=== PATIENT | male | born 1995 | race Two or more races ===

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

== ENCOUNTER 2017-09-04 16:20 | Emergency (ER) | payer OTHER ==
[2017-09-04] MEDS: IBUPROFEN 600 MG TAB PO (17:41)
== END 2017-09-04 17:46 | disposition home or self-care (01) ==
LOC: M ED 16:20
DX: M25.532 Pain in left wrist (principal)
CPT/HCPCS: 99282

== ENCOUNTER → 2019-04-30 | Outpatient (REF) | payer OTHER | LOC: M SFHCLERA 19:00 | PROVIDERS: ATTEND Physician Assistant | DX: J02.9 Acute pharyngitis, unspecified (principal) ==

== ENCOUNTER 2020-04-21 04:55 | Emergency (ER) | payer OTHER, SELFPAY ==
[~2020-04-21] VITALS: Ht 182.9 cm; Wt 93.2 kg
[2020-04-21 04:55] VITALS: BP 131/75
--- OUTSIDE RECORDS SUMMARY | 2020-04-21 05:02 | CCD ---
Author Author [facility] Organization [facility] Address Unknown Phone Unavailable Care Team Providers Care Infrastructure Director Name Role Phone Kelly Sexton MD Unavailable Unavailable Kelly Sexton MD Unavailable Unavailable Kelly Sexton MD Unavailable Unavailable Kelly Sexton MD Unavailable Unavailable Kelly Sexton MD Unavailable Unavailable Kelly Sexton MD Unavailable Unavailable Kelly Sexton MD Unavailable Unavailable Kelly Sexton MD Unavailable Unavailable Kelly Sexton MD Unavailable Unavailable Kelly Sexton MD Unavailable Unavailable Kelly Sexton MD Unavailable Unavailable Kelly Sexton MD Unavailable Unavailable Kelly Sexton MD Unavailable Unavailable Kelly Sexton MD Unavailable Unavailable Kelly Sexton MD Unavailable Unavailable Kelly Sexton MD Unavailable Unavailable Kelly Sexton MD Unavailable Unavailable Kelly Sexton MD Unavailable Unavailable Kelly Sexton MD Unavailable Unavailable Kelly Sexton MD Unavailable Unavailable Kelly Sexton MD Unavailable Unavailable Kelly Sexton MD Unavailable Unavailable Kelly Sexton MD Unavailable Unavailable Kelly Sexton MD Unavailable Unavailable Kelly Sexton MD Unavailable Unavailable Kelly Sexton MD Unavailable Unavailable Maring, Michael PA Unavailable Unavailable Maring, Michael PA Unavailable Unavailable Maring, Michael PA Unavailable Unavailable Maring, Michael PA Unavailable Unavailable Maring, Michael PA Unavailable Unavailable Maring, Michael PA Unavailable Unavailable Maring, Michael PA Unavailable Unavailable Maring, Michael PA Unavailable Unavailable Maring, Michael PA Unavailable Unavailable Maring, Michael PA Unavailable Unavailable Maring, Michael PA Unavailable Unavailable Maring, Michael PA Unavailable Unavailable Maring, Michael PA Unavailable Unavailable Maring, Michael PA Unavailable Unavailable Feola, T Stephie PA Unavailable Unavailable Feola, T Stephie PA Unavailable Unavailable Feola, T Stephie PA Unavailable Unavailable Feola, T Stephie PA Unavailable Unavailable Feola, T Stephie PA Unavailable Unavailable Feola, T Stephie PA Unavailable Unavailable Feola, T Stephie PA Unavailable Unavailable Feola, T Stephie PA Unavailable Unavailable Feola, T Stephie PA Unavailable Unavailable Feola, T Stephie PA Unavailable Unavailable Feola, T Stephie PA Unavailable Unavailable Feola, T Stephie PA Unavailable Unavailable Feola, T Setphie PA Unavailable Unavailable Feola, T Stephie PA Unavailable Unavailable Feola, T Stephie PA Unavailable Unavailable Feola, T Stephie PA Unavailable Unavailable Feola, T Stephie PA Unavailable Unavailable Feola, T Stephie PA Unavailable Unavailable Feola, T Stephie PA Unavailable Unavailable Feola, T Stephie PA Unavailable Unavailable Feola, T Stephie PA Unavailable Unavailable Feola, T Stephie PA Unavailable Unavailable Feola, T Stephie PA Unavailable Unavailable Feola, T Stephie PA Unavailable Unavailable Feola, T Stephie PA Unavailable Unavailable Feola, T Stephie PA Unavailable Unavailable Feola, T Stephie PA Unavailable Unavailable Feola, T Stephie PA Unavailable Unavailable Feola, T Stephie PA Unavailable Unavailable Feola, T Stephie PA Unavailable Unavailable Feola, T Stephie PA Unavailable Unavailable Feola, T Stephie PA Unavailable Unavailable Feola, T Stephie PA Unavailable Unavailable Feola, T Stephie PA Unavailable Unavailable Feola, T Stephie PA Unavailable Unavailable Feola, T Stephie PA Unavailable Unavailable Feola, T Stephie PA Unavailable Unavailable Re-disclosure Warning The records that you are about to access may contain information from federally-assisted alcohol or drug abuse programs. If such information is present, then the following federally mandated warning applies: This information has been disclosed to you from records protected by federal confidentiality rules (42 CFR part 2). The federal rules prohibit you from making any further disclosure of this information unless further disclosure is expressly permitted by the written consent of the person to whom it pertains or as otherwise permitted by 42 CFR part 2. A general authorization for the release of medical or other information is NOT sufficient for this purpose. The Federal rules restrict any use of the information to criminally investigate or prosecute any alcohol or drug abuse patient.The records that you are about to access may contain highly sensitive health information, the redisclosure of which is protected by Article 27-F of the [facility] Public Health law. If you continue you may have access to information: Regarding HIV / AIDS; Provided by facilities licensed or operated by the [facility] Office of Mental Health; or Provided by the [facility] Office for People With Developmental Disabilities. If such information is present, then the following [facility] mandated warning applies: This information has been disclosed to you from confidential records which are protected by state law. State law prohibits you from making any further disclosure of this information without the specific written consent of the person to whom it pertains, or as otherwise permitted by law. Any unauthorized further disclosure in violation of state law may result in a fine or shelter sentence or both. A general authorization for the release of medical or other information is NOT sufficient authorization for further disc losure. Encounters Encounter Providers Location Date Indications Data Source(s ) O Attender: Teresa Sexton MD 0 04/18/2020 01:38:13 PM EST - 04/18/2020 02:13:19 PM EST [facility] ([facility] ) O Attender: Stephie SALDAÑA 021 09:24:40 AM EST - 04/12/2020 10:14:46 AM EST [facility] ([facility] ) O Attender: Michael SALDAÑA 04/05/19 21 12:00:29 PM EST - 04/05/2020 12:59:28 PM EST [facility] ([facility] ) [facility] [address] [place] [address] 04/30/2019 12:00:00 AM EST eCW1 ([facility]) Insurance Providers Payer name Policy type / Coverage type Policy ID Covered constitution party ID Covered constitution party's relationship to cavanaugh Policy Cavanaugh Plan Information RAY [id number] SP [id number] Workers Comp II- FA WorkComp Health Claim [id number] Empl oyee [id number] ANSI-Commercial [id number] RAY [id number] SP [id number] [address] [place] O [id number] S [id number] O BLUE [id number] SP [id number] Surgeries/Procedures Procedure Description Date Indications Data Source(s) STREP A ASSAY W/OPTIC 04/30/2019 12:00:00 AM EST [facility] Results ID Date Data Source GATS (NEGATIVE STREP SCREEN) 04/30/2019 12:00:00 AM EST [facility]) Name Value Range Interpretation Code Description Data Mary rce(s) Supporting Document(s) FULL REPORT IN LAB NOTES (eCW and [facility]). GATS CULTURE (NEG STREP SCR) [facility]CW[facility]) Procedure Vital Signs ID Date Data Source UNK Name Value Range Interpretation Code Description Data Source(s) Diastolic blood pressure 94 mm[Hg] 94 mm[Hg] [facility]CW[facility]) Systolic blood pressure 157 mm[Hg] 157 mm[Hg] e CW1 [facility]) Body temperature 98.4 [degF] 98.4 [degF] [facility]) Respiratory rate 14 /min 14 /min eCW1 ([facility]) Heart rate 65 /min 65 /min eCW1 ([facility]) Body mass index (BMI) [Ratio] 26.04 kg/m2 26.04 kg/m2 [facility]CW[facility]) Body height 72 [in_us] 72 [in_us] eCW1 ([facility]) Body weight Measured 192 [lb_av] 192 [lb_av] eC W1 [facility])
[2020-04-21] MEDS ORDERED: ACETAMINOPHEN 500 MG TAB PO ONE (06:30)
--- OUTSIDE RECORDS SUMMARY | 2020-04-21 06:39 | CCD ---
Author Author [facility] Organization [facility] Address Unknown Phone Unavailable Care Team Providers Care Wood Crafter Name Role Phone Kelly Sexton MD Unavailable [...] is protected by Article 27-F of the [facility] Public Health law. If you continue you may have access to information: Regarding HIV / AIDS; Provided by facilities licensed or operated by the [facility] Office of Mental Health; or Provided by the [facility] Office for People With Developmental Disabilities. If such information is present, then the following [facility] mandated warning applies: This information has [...] law may result in a fine or long term sentence or both. A general authorization for the release of medical or other information is NOT sufficient authorization for further disc losure. Encounters Encounter Providers Location Date Indications Data Source(s ) O Attender: Teresa Sexton MD 0 04/18/2020 01:38:13 PM EST - 04/18/2020 02:13:19 PM EST [facility] ([facility] ) O Attender: Stephie SALDAÑA 021 09:24:40 AM EST - 04/12/2020 10:14:46 AM EST [facility] ([facility] ) O Attender: Michael SALDAÑA 04/05/19 21 12:00:29 PM EST - 04/05/2020 12:59:28 PM EST [facility] ([facility] ) [facility] [address] [address] 04/30/2019 12:00:00 AM EST eCW1 ([facility]) Insurance Providers Payer name Policy type / Coverage type Policy ID Covered alliance party ID Covered alliance party's relationship to real Policy Real Plan Information RAY [id number] SP [id number] 400 Workers Comp II- FA WorkComp Health Claim [id number] Empl oyee [id number] ANSI-Commercial [id number] RAY [id number] SP [id number] [address] [place] [place] O [id number] S [id number] HMO BLUE [id number] SP [id number] Surgeries/Procedures Procedure Description Date Indications Data Source(s) STREP A ASSAY W/OPTIC 04/30/2019 12:00:00 AM EST eCW1 ([facility]) Results ID Date Data Source GATS (NEGATIVE STREP SCREEN) 04/30/2019 12:00:00 AM EST eCW1 ([facility]) Name Value Range Interpretation Code Description Data Mary rce(s) Supporting Document(s) FULL REPORT IN LAB NOTES (eCW and [facility]). GATS CULTURE (NEG STREP SCR) eCW1 ([facility]) Procedure Vital Signs ID Date Data Source UNK Name Value Range Interpretation Code Description Data Source(s) Diastolic blood pressure 94 mm[Hg] 94 mm[Hg] eCW1 ([facility]) Systolic blood pressure 157 mm[Hg] 157 mm[Hg] e CW1 ([facility]) Body temperature 98.4 [degF] 98.4 [degF] eCW1 ( [facility]) Respiratory rate 14 /min 14 /min eCW1 ([facility]) Heart rate 65 /min 65 /min eCW1 ([facility]) Body mass index (BMI) [Ratio] 26.04 kg/m2 26.04 kg/m2 eCW1 ([facility]) Body height 72 [in_us] 72 [in_us] eCW1 ([facility]) Body weight Measured 192 [lb_av] 192 [lb_av] eC W1 ([facility])
--- NOTE | 2020-04-21 06:50 | REPVR ---
PROCEDURE INFORMATION: Exam: XR Left Hip with Pelvis when Performed Exam date and time: 04/21/2020 6:37 AM Age: 24 years old Clinical indication: Hip pain; Left hip; Additional info: L hip pain TECHNIQUE: Imaging protocol: XR Left hip with pelvis when performed. Views: 2 or 3 views. COMPARISON: No relevant prior studies available. FINDINGS: Bones/joints: No acute fracture. Soft tissues: Unremarkable. IMPRESSION: No acute findings. Electronically signed by: Peter Blanco On 04/21/2020 06:50:14 AM
== END 2020-04-21 07:14 | disposition home or self-care (01) ==
LOC: M ED 04:55
DX: S76.012A Strain of muscle, fascia and tendon of left hip, initial encounter (principal); W01.0XXA Fall on same level from slipping, tripping and stumbling without subsequent striking against object, initial encounter; Y92.89 Other specified places as the place of occurrence of the external cause; Y99.0 Civilian activity done for income or pay; F17.210 Nicotine dependence, cigarettes, uncomplicated

== ENCOUNTER → 2020-06-10 | Outpatient (CLI) | payer OTHER ==
[~2020-06-10] MED LIST: ISOVUE-300 61% 50ML VIAL As Ordered ONE; PROHANCE 279.3MG/ML 5ML VIAL As Ordered ONE
--- NOTE | 2020-06-10 10:31 | REP ---
INDICATION: INJURY OF LEFT HIP COMPARISON: Radiographs 04/21/2020. TECHNIQUE: Coronal T1, STIR through the pelvis, axial, coronal, sagittal T2 fat sat, post arthrogram axial T1 fat sat, coronal T1 fat sat, sagittal T1 fat sat hip. FINDINGS: The visualized osseous structures demonstrate normal bone marrow signal. There is no bone marrow edema or occult fracture. There is no evidence of avascular necrosis of either femoral head. There is no significant joint effusion. I do not see evidence of a labral tear. There is a smooth thin linear extension of contrast at the superior chondrolabral junction which is felt to represent a sublabral sulcus. There is no paralabral cyst. The other surrounding soft tissue structures demonstrate no abnormal signal. Visualized intrapelvic structures are unremarkable. IMPRESSION: Essentially negative MR arthrogram left hip. <Electronically signed by Armaan Mendoza > 06/10/20 1022
--- NOTE | 2020-06-10 18:43 | REP ---
INDICATION: INJURY OF LEFT HIP. COMPARISON: None. TECHNIQUE: The procedure was performed under the direction supervision of Dr. Mendoza. The benefits and risks including but not limited to pain, infection, bleeding and anaphylaxis were explained to the patient and informed consent was obtained. The left femoral neck was localized using fluoroscopic guidance. Skin was prepped and draped in a sterile fashion. 1% lidocaine was used as a local anesthetic. Using fluoroscopic guidance a 22 gauge spinal needle was inserted and advanced to the femoral neck. 0.5 ml of Isovue-300 was injected to verify placement. 11 ml of a solution containing 20 ml of sterile saline and 0.15 ml of ProHance was injected into the joint. The needle was removed and the patient was taken to MRI for postprocedural imaging. The patient tolerated the procedure well and there were no immediate complications. Less than 6 seconds of fluoro time was utilized for this procedure. FINDINGS: None IMPRESSION: Fluoro guidance for left hip MRI arthrogram injection. <Electronically signed by Yovany Watt > 06/10/20 1525 <Electronically signed by Armaan Mendoza > 06/10/20 0302
== END ==
LOC: M RADPRO 06:41
PROVIDERS: ATTEND Orthopaedic Surgery
DX: S79.912A Unspecified injury of left hip, initial encounter (principal); X58.XXXA Exposure to other specified factors, initial encounter; Y92.9 Unspecified place or not applicable; Y93.9 Activity, unspecified; Y99.8 Other external cause status
CPT/HCPCS: 27093; 73723; 77002; A9576; Q9967

== ENCOUNTER 2021-06-30 14:55 | Emergency (ER) | payer OTHER ==
[~2021-06-30] VITALS: Ht 182.9 cm; Wt 88.6 kg
[2021-06-30] MEDS ORDERED: AMOX875T (15:10)
[2021-06-30 15:49] LABS: BASO # 0.1 10^3/uL (0.0-0.2); BASO % 0.7 % (0.0-1.0); EOS # 0.2 10^3/uL (0.0-0.5); EOS % 3.4 % (0.0-3.0); HEMATOCRIT 42.4 % (42.0-52.0); HEMOGLOBIN 13.8 g/dl (13.5-17.5); LYMPH # 1.3 10^3/uL (1.5-5.0); LYMPH % 19.2 % (24.0-44.0); MEAN CORPUSCULAR HEMOGLOBIN 27.5 pg (27.0-33.0); MEAN CORPUSCULAR HGB CONC 32.5 g/dl (32.0-36.5); MEAN CORPUSCULAR VOLUME 84.6 fl (80.0-96.0); MONO # 0.5 10^3/uL (0.0-0.8); MONO % 7.9 % (2.0-8.0); NEUTROPHILS # 4.7 10^3/uL (1.5-8.5); NEUTROPHILS % 68.7 % (36.0-66.0); PLATELET COUNT, AUTOMATED 244 10^3/uL (150-450); RED BLOOD COUNT 5.01 10^6/uL (4.30-6.10); WHITE BLOOD COUNT 6.8 10^3/uL (4.0-10.0)
[2021-06-30 16:13] LABS: BLOOD UREA NITROGEN 10 MG/DL (7-18); C REACTIVE PROTEIN QUANTITATIV 1.19 MG/DL (0.00-0.30); CALCIUM LEVEL 9.5 MG/DL (8.5-10.1); CARBON DIOXIDE LEVEL 27 MEQ/L (21-32); CHLORIDE LEVEL 109 MEQ/L (98-107); CREATININE FOR GFR 0.96 MG/DL (0.70-1.30); GLOMERULAR FILTRATION RATE > 60.0 (>60); GLUCOSE, FASTING 87 MG/DL (70-100); POTASSIUM SERUM 4.3 MEQ/L (3.5-5.1); SODIUM LEVEL 140 MEQ/L (136-145)
[2021-06-30] MEDS ORDERED: ISOVUE-370 76% 100ML VIAL As Ordered ONE (16:16)
[2021-06-30 16:33] LABS: ERYTHROCYTE SEDIMENTATION RATE 3 mm/hr (0-15)
[2021-06-30] MEDS ORDERED: AUGMENTIN 875 MG TAB PO ONE (17:45)
[2021-06-30] MEDS ORDERED: AMOX875T2 PO (17:50)
[2021-06-30 18:30] VITALS: BP 135/89
== END 2021-06-30 18:32 | disposition home or self-care (01) ==
LOC: M ED 14:55
DX: K04.7 Periapical abscess without sinus (principal); L03.211 Cellulitis of face; F17.200 Nicotine dependence, unspecified, uncomplicated
CPT/HCPCS: 36415; 70487; 80048; 85025; 85652; 86140; 99283; Q9967

== ENCOUNTER 2022-09-03 23:41 | Emergency (ER) | payer OTHER ==
[~2022-09-03] VITALS: Ht 182.9 cm; Wt 102.6 kg
[~2022-09-03 23:41] MED LIST changes: +AMOX875T; +AMOX875T2 PO; -ISOVUE-300 61% 50ML VIAL As Ordered ONE; -PROHANCE 279.3MG/ML 5ML VIAL As Ordered ONE
[2022-09-03 23:42] VITALS: BP 178/89; TEMP 98; O2SAT 98
== END 2022-09-04 02:11 | disposition left against medical advice (07) ==
LOC: M ED 23:41
DX: Z53.21 Procedure and treatment not carried out due to patient leaving prior to being seen by health care provider (principal)

== ENCOUNTER → 2023-02-11 | Outpatient (REF) | payer OTHER ==
[2023-02-11 18:49] LABS: RSV AMPLIFICATION NEGATIVE (NEGATIVE)
== END ==
LOC: M LAB REF 16:23
PROVIDERS: ATTEND Physician Assistant Medical
DX: B34.9 Viral infection, unspecified (principal)

== ENCOUNTER → 2023-04-20 | Outpatient (REF) | payer OTHER ==
[~2023-04-20] MED LIST changes: +AZIT-10 PO; +CETI-24 PO; +HOLTER MONITOR XX
== END ==
LOC: M LAB REF 16:22
PROVIDERS: ATTEND Physician Assistant
DX: J03.90 Acute tonsillitis, unspecified (principal)

== ENCOUNTER 2023-04-21 02:50 | Emergency (ER) | payer OTHER ==
[~2023-04-21] VITALS: Ht 182.9 cm; Wt 109.1 kg
[~2023-04-21 02:50] MED LIST changes: -AZIT-10 PO
[2023-04-21 05:50] LABS: CHLAMYDIA DNA AMPLIFICATION NEGATIVE (NEGATIVE); GC DNA AMPLIFICATION NEGATIVE (NEGATIVE)
[2023-04-21] MEDS: cefTRIAXone SOD 1GM VIAL IM ONE (06:40)
[2023-04-21] MEDS: LIDOCAINE 1% SDV 5ML VIAL DILUENT ONE (06:40)
[2023-04-21 06:55] LABS: BASO # 0.1 10^3/uL (0.0-0.2); BASO % 0.8 % (0.0-1.0); EOS # 0.4 10^3/uL (0.0-0.5); EOS % 4.2 % (0.0-3.0); HEMATOCRIT 46.3 % (42.0-52.0); HEMOGLOBIN 15.3 g/dl (13.5-17.5); LYMPH # 2.1 10^3/uL (1.5-5.0); LYMPH % 22.7 % (24.0-44.0); MEAN CORPUSCULAR HEMOGLOBIN 29.4 pg (27.0-33.0); MEAN CORPUSCULAR VOLUME 88.9 fl (80.0-96.0); MONO # 0.6 10^3/uL (0.0-0.8); MONO % 6.9 % (2.0-8.0); NEUTROPHILS # 5.9 10^3/uL (1.5-8.5); NEUTROPHILS % 65.1 % (36.0-66.0); PLATELET COUNT, AUTOMATED 261 10^3/uL (150-450); RED BLOOD COUNT 5.21 10^6/uL (4.30-6.10); WHITE BLOOD COUNT 9.1 10^3/uL (4.0-10.0)
[2023-04-21 07:26] LABS: BLOOD UREA NITROGEN 12 MG/DL (9-23); CALCIUM LEVEL 9.2 MG/DL (8.5-10.1); CARBON DIOXIDE LEVEL 26 MMOL/L (20-31); CHLORIDE LEVEL 105 MMOL/L (98-107); CREATININE FOR GFR 0.94 MG/DL (0.70-1.30); GLOMERULAR FILTRATION RATE > 60.0 (>60); GLUCOSE, FASTING 92 MG/DL (60-100); POTASSIUM SERUM 4.1 MMOL/L (3.5-5.1); SODIUM LEVEL 139 MMOL/L (136-145)
[2023-04-21 07:59] LABS: HIV 1&2 SCREEN NEGATIVE (NEGATIVE)
[2023-04-21] MEDS ORDERED: AZIT-10 PO (08:16)
[2023-04-21 08:21] VITALS: BP 138/81; TEMP 97.7; O2SAT 98
== END 2023-04-21 08:49 | disposition home or self-care (01) ==
LOC: M ED 02:50
DX: J02.9 Acute pharyngitis, unspecified (principal); K14.6 Glossodynia
CPT/HCPCS: 80048; 85025; 86780; 87070; 87389; 87810; 87850; 87880; 96372; 99283; J0696

== ENCOUNTER 2023-07-17 01:28 | Emergency (ER) | payer OTHER ==
[~2023-07-17] VITALS: Ht 182.9 cm; Wt 110.0 kg
[~2023-07-17 01:28] MED LIST changes: +AZIT-10 PO
[2023-07-17] MEDS ORDERED: MAGICMW SSP (04:19)
[2023-07-17] MEDS: MAGIC MOUTHWASH 5ML ORAL SYRINGE SS ONE (04:39)
[2023-07-17 04:49] VITALS: BP 132/68; TEMP 97.9; O2SAT 99
== END 2023-07-17 04:51 | disposition home or self-care (01) ==
LOC: M ED 01:28
DX: K12.39 Other oral mucositis (ulcerative) (principal)

== ENCOUNTER 2023-10-02 02:16 | Emergency (ER) | payer OTHER ==
[~2023-10-02] VITALS: Ht 182.9 cm; Wt 102.6 kg
[~2023-10-02 02:16] MED LIST changes: +MAGICMW SSP
[2023-10-02 02:17] VITALS: TEMP 96.6; O2SAT 98
[2023-10-02 02:33] VITALS: BP 150/98
[2023-10-03] MEDS ORDERED: TRAM50TA2 PO (04:33)
[2023-10-03] MEDS ORDERED: IBUP-1022 PO (04:33)
[2023-10-03] MEDS ORDERED: MEDR4PAK PO (04:33)
== END 2023-10-02 04:49 | disposition left against medical advice (07) ==
LOC: M ED 02:16
DX: Z53.21 Procedure and treatment not carried out due to patient leaving prior to being seen by health care provider (principal)

== ENCOUNTER 2023-10-02 22:21 | Emergency (ER) | payer OTHER ==
[~2023-10-02] VITALS: Ht 182.9 cm; Wt 101.9 kg
[2023-10-03] MEDS: IBUPROFEN 600MG TAB PO ONE (03:01)
[2023-10-03] MEDS ORDERED: TRAM50TA2 PO (04:33)
[2023-10-03] MEDS ORDERED: IBUP-1022 PO (04:33)
[2023-10-03] MEDS ORDERED: MEDR4PAK PO (04:33)
[2023-10-03] MEDS: predniSONE 20 MG TAB PO ONE (04:47)
[2023-10-03] MEDS: NORCO 5/325MG TABLET (HOME DOSE PACK) PO ONE (04:47)
[2023-10-03 05:04] VITALS: BP 124/72; TEMP 98.7; O2SAT 99
== END 2023-10-03 05:05 | disposition home or self-care (01) ==
LOC: M ED 22:21
DX: M51.26 Other intervertebral disc displacement, lumbar region (principal); M99.63 Osseous and subluxation stenosis of intervertebral foramina of lumbar region; F17.210 Nicotine dependence, cigarettes, uncomplicated; Z79.1 Long term (current) use of non-steroidal anti-inflammatories (NSAID); Z79.899 Other long term (current) drug therapy
CPT/HCPCS: 72131; 72192; 76870; 81001; 93976; 99283; J7512

== ENCOUNTER 2023-10-05 22:27 | Emergency (ER) | payer OTHER ==
[~2023-10-05] VITALS: Ht 182.9 cm; Wt 100.0 kg
[~2023-10-05 22:27] MED LIST changes: +IBUP-1022 PO; +MEDR4PAK PO; +TRAM50TA2 PO
[2023-10-05 22:28] VITALS: TEMP 98.2
[2023-10-06 01:00] VITALS: BP 162/85
[2023-10-06] MEDS: NS 1,000 ML IV ONE (01:00)
[2023-10-06 01:40] LABS: BASO # 0.1 10^3/uL (0.0-0.2); BASO % 0.8 % (0.0-1.0); EOS # 0.1 10^3/uL (0.0-0.5); EOS % 0.6 % (0.0-3.0); HEMATOCRIT 40.8 % (42.0-52.0); HEMOGLOBIN 13.8 g/dl (13.5-17.5); LYMPH # 2.1 10^3/uL (1.5-5.0); LYMPH % 27.8 % (24.0-44.0); MEAN CORPUSCULAR HEMOGLOBIN 29.2 pg (27.0-33.0); MEAN CORPUSCULAR HGB CONC 33.8 g/dl (32.0-36.5); MEAN CORPUSCULAR VOLUME 86.3 fl (80.0-96.0); MONO # 0.7 10^3/uL (0.0-0.8); MONO % 8.6 % (2.0-8.0); NEUTROPHILS # 4.8 10^3/uL (1.5-8.5); NEUTROPHILS % 61.8 % (36.0-66.0); PLATELET COUNT, AUTOMATED 278 10^3/uL (150-450); RED BLOOD COUNT 4.73 10^6/uL (4.30-6.10); WHITE BLOOD COUNT 7.7 10^3/uL (4.0-10.0)
[2023-10-06 02:03] LABS: ETHYL ALCOHOL (ETHANOL) < 0.003 % (0.000-0.010)
[2023-10-06 02:05] LABS: ALBUMIN 4.4 G/DL (3.2-5.2); ALKALINE PHOSPHATASE 67 U/L (46-116); ALT/SGPT 32 U/L (7.0-40); AST/SGOT 22 U/L (<34); BILIRUBIN,DIRECT 0.1 MG/DL (<0.4); BILIRUBIN,TOTAL 0.4 MG/DL (0.3-1.2); BLOOD UREA NITROGEN 15 MG/DL (9-23); CALCIUM LEVEL 8.9 MG/DL (8.5-10.1); CARBON DIOXIDE LEVEL 27 MMOL/L (20-31); CHLORIDE LEVEL 101 MMOL/L (98-107); CREATININE FOR GFR 1.04 MG/DL (0.70-1.30); GLOMERULAR FILTRATION RATE > 60.0 (>60); GLUCOSE, FASTING 91 MG/DL (60-100); POTASSIUM SERUM 3.6 MMOL/L (3.5-5.1); SALICYLATE LEVEL < 3.0 MG/DL (<30); SODIUM LEVEL 136 MMOL/L (136-145); TOTAL PROTEIN 6.5 G/DL (5.7-8.2)
[2023-10-06 02:07] LABS: THYROID STIMULATING HORMONE 2.681 uIU/ML (0.55-4.78)
[2023-10-06 02:13] LABS: AMPHETAMINES LEVEL URINE NEGATIVE (NEGATIVE); BARBITURATES URINE NEGATIVE (NEGATIVE); BENZODIAZEPINES URINE NEGATIVE (NEGATIVE); COCAINE METABOLITE URINE NEGATIVE (NEGATIVE)
[2023-10-06 02:14] LABS: METHADONE URINE NEGATIVE (NEGATIVE); PHENCYCLIDINE URINE NEGATIVE (NEGATIVE)
[2023-10-06 02:34] LABS: CANNABINOIDS URINE POSITIVE (NEGATIVE); CPK CREATINE PHOSPHOKINASE 274 U/L (46-171); OPIATES URINE POSITIVE (NEGATIVE)
[2023-10-06 04:12] VITALS: O2SAT 97
[2023-10-06] MEDS ORDERED: OXYCODONE/APAP 5MG/325MG(HOME DOSE PACK) PO ONE (05:00)
== END 2023-10-06 05:14 | disposition home or self-care (01) ==
LOC: M ED 22:27
DX: T88.7XXA Unspecified adverse effect of drug or medicament, initial encounter (principal); F12.10 Cannabis abuse, uncomplicated; Z79.1 Long term (current) use of non-steroidal anti-inflammatories (NSAID); Z79.899 Other long term (current) drug therapy

== ENCOUNTER 2024-01-09 10:48 | Emergency (ER) | payer OTHER, SELFPAY ==
[~2024-01-09] VITALS: Ht 172.7 cm; Wt 99.5 kg
[~2024-01-09 10:48] MED LIST changes: -ACET-897 PO
[2024-01-09 12:25] LABS: BASO % 0.7 % (0.0-1.0); EOS # 0.1 10^3/uL (0.0-0.5); EOS % 2.3 % (0.0-3.0); HEMATOCRIT 41.2 % (42.0-52.0); HEMOGLOBIN 13.5 g/dl (13.5-17.5); LYMPH # 1.3 10^3/uL (1.5-5.0); LYMPH % 22.1 % (24.0-44.0); MEAN CORPUSCULAR HEMOGLOBIN 28.2 pg (27.0-33.0); MEAN CORPUSCULAR HGB CONC 32.8 g/dl (32.0-36.5); MONO # 0.8 10^3/uL (0.0-0.8); MONO % 14.7 % (2.0-8.0); NEUTROPHILS # 3.4 10^3/uL (1.5-8.5); PLATELET COUNT, AUTOMATED 284 10^3/uL (150-450); RED BLOOD COUNT 4.79 10^6/uL (4.30-6.10); WHITE BLOOD COUNT 5.7 10^3/uL (4.0-10.0)
[2024-01-09 12:48] LABS: ALBUMIN 3.7 G/DL (3.2-5.2); BILIRUBIN,DIRECT 0.1 MG/DL (<0.4); BILIRUBIN,TOTAL 0.5 MG/DL (0.3-1.2); TOTAL PROTEIN 6.7 G/DL (5.7-8.2)
[2024-01-09] MEDS ORDERED: ISOVUE-370 76% 100ML VIAL As Ordered ONE (13:17)
[2024-01-09] MEDS: ACETAMINOPHEN 500 MG TAB PO ONE (13:19)
[2024-01-09] MEDS ORDERED: ACET-897 PO (13:51)
[2024-01-09] MEDS ORDERED: HOME MED LIST COMPLETE! XX SCH (13:55)
[2024-01-09 14:12] LABS: RSV AMPLIFICATION NEGATIVE (NEGATIVE)
[2024-01-09] MEDS ORDERED: AMOX875T2 PO (15:16)
[2024-01-09 15:39] VITALS: BP 140/86; TEMP 98.8; O2SAT 100
== END 2024-01-09 15:40 | disposition home or self-care (01) ==
LOC: M ED 10:48
DX: K62.5 Hemorrhage of anus and rectum (principal); R10.84 Generalized abdominal pain; R19.7 Diarrhea, unspecified; R59.9 Enlarged lymph nodes, unspecified; Z79.1 Long term (current) use of non-steroidal anti-inflammatories (NSAID); Z79.2 Long term (current) use of antibiotics
CPT/HCPCS: 36415; 74177; 80047; 80076; 83605; 83690; 85025; 86850; 87631; 99284; Q9967

== ENCOUNTER → 2024-01-09 | Outpatient (REF) | payer OTHER ==
[~2024-01-09] MED LIST changes: +ACET-897 PO
== END ==
LOC: M LAB REF 10:49
PROVIDERS: ATTEND Physician Assistant
DX: K52.9 Noninfective gastroenteritis and colitis, unspecified (principal)

== ENCOUNTER 2024-04-18 07:19 | Day surgery (SDC) | payer OTHER ==
[~2024-04-18] VITALS: Ht 182.9 cm; Wt 98.9 kg
[~2024-04-18 07:19] MED LIST changes: +ACET-897 PO
[2024-04-18] MEDS ORDERED: propofoL 200 MG/20 ML VIAL As Ordered ONE (07:42)
[2024-04-18] MEDS ORDERED: LIDOCAINE 2% 100MG/5ML SDV (FOR ANES.) As Ordered ONE (07:42)
[2024-04-18 08:45] VITALS: TEMP 97.6
[2024-04-18 08:57] VITALS: BP 135/74; O2SAT 100
== END 2024-04-18 08:59 | disposition home or self-care (01) ==
LOC: M OPP 07:19
PROVIDERS: ATTEND Surgery
DX: K52.9 Noninfective gastroenteritis and colitis, unspecified (principal); K64.1 Second degree hemorrhoids; K92.1 Melena; F17.210 Nicotine dependence, cigarettes, uncomplicated